=== PATIENT | female | born 1990 | race Caucasian/White ===

== ENCOUNTER 2020-10-13 15:31 | Emergency (ER) | payer MEDICAID, SELFPAY ==
[~2020-10-13] VITALS: Ht 157.5 cm; Wt 64.0 kg
[2020-10-13 16:01] VITALS: Ht 157.5 cm; Wt 64.0 kg
[2020-10-13 17:06] LABS: BASOPHIL % 0.1 % (0.2-1.3); PLATELET COUNT 278 x10^3mcL (179-408)
[2020-10-13 17:12] LABS: CALCIUM 9.5 mg/dL (8.5-10.1); CARBON DIOXIDE 23.9 mmol/L (21-32); CHLORIDE SERUM 105 mmol/L (98-107); CREATININE SERUM 0.7 mg/dL (0.6-1.0); GFR1 > 60 mL/min; GLUCOSE SERUM 126 mg/dL (74-106); POTASSIUM SERUM 3.7 mmol/L (3.5-5.1); SODIUM SERUM 142 mmol/L (136-145)
[2020-10-13 17:16] LABS: ALBUMIN 4.1 g/dL (3.4-5.0); ALKALINE PHOSPHATASE 101 U/L (46-116); ALT/SGPT 28 U/L (14-59); AMYLASE 52 U/L (25-115); AST/SGOT 20 U/L (15-37); BILIRUBIN TOTAL 0.7 mg/dL (0.20-1.00); LIPASE 46 IU/L (73-393); TOTAL PROTEIN, SERUM 7.5 g/dL (6.4-8.2)
[2020-10-13] MEDS ORDERED: REG5 PO (19:18)
[2020-10-13 19:35] VITALS: BP 130/75
== END 2020-10-13 19:35 | disposition home or self-care (01) ==
LOC: ED 15:31
PROVIDERS: Emergency Medicine
DX: K52.9 Noninfective gastroenteritis and colitis, unspecified (principal)
CPT/HCPCS: 90700; J2765; J3490; J7030